=== PATIENT | male | born 1990 | race Caucasian/White ===

== ENCOUNTER 2020-05-02 18:26 | Emergency (ER) | payer SELFPAY ==
[2020-05-02 18:31] VITALS: BP 132/77
== END 2020-05-02 19:30 | disposition left against medical advice (07) ==
LOC: ED 18:26
DX: Z53.21 Procedure and treatment not carried out due to patient leaving prior to being seen by health care provider (principal)

== ENCOUNTER 2020-05-06 17:35 | Inpatient (IN) | payer SELFPAY ==
[2020-05-06] MEDS ORDERED: HYDROmorphone 1 MG/ML CARPUJECT IVP STA ×2 (17:49→18:22)
[2020-05-06] MEDS ORDERED: CLINDAMYCIN 900 MG/50 ML 50 ML IV ONE (17:50)
[2020-05-06] MEDS ORDERED: SODIUM CHLORIDE 0.9% 1,000 ML IV STA (17:50)
[2020-05-06] MEDS ORDERED: IOVERSOL 320 100 ML VIAL IVP ONE ×2 (17:56→18:47)
[2020-05-06 18:00] LABS: BASOPHILS # (AUTO) 0.1 10^3/uL (0.0-0.1); BASOPHILS % (AUTO) 0.4 %; EOSINOPHILS # (AUTO) 0.1 10^3/uL (0.0-0.7); HGB - HEMOGLOBIN 12.9 g/dL (14.0-18.0); LYMPHOCYTES # (AUTO) 1.3 10^3/uL (1.5-3.5); LYMPHOCYTES % (AUTO) 9.9 %; MEAN CORPUSCULAR HEMOGLOBIN 30.1 pg (27.0-31.0); MEAN CORPUSCULAR HGB CONC 33.3 g/dL (32.0-36.0); MEAN CORPUSCULAR VOLUME 90.4 fL (80.0-94.0); MEAN PLATELET VOLUME 8.7 fL (7.4-11.4); MONOCYTES # (AUTO) 0.8 10^3/uL (0.0-1.0); MONOCYTES % (AUTO) 6.1 %; NEUTROPHILS # (AUTO) 10.8 10^3/uL (1.5-6.6); NEUTROPHILS % (AUTO) 82.1 %; PLT - PLATELET COUNT 360 10^3/uL (130-450); RED BLOOD COUNT 4.28 10^6/uL (4.70-6.10); RED CELL DISTRIBUTION WIDTH 11.8 % (12.0-15.0); WHITE BLOOD COUNT 13.1 x10^3/uL (4.8-10.8)
--- NOTE | 2020-05-06 18:04 | ED Physician Documentation ---
History of Present Illness - Stated complaint Stated Complaint: L FACIAL PX/SWELLING - Chief complaint Chief Complaint: Heent - History obtained from History obtained from: Patient - History of Present Illness Timing: How many weeks ago (1) Pain level max: 8 Pain level now: 8 - Additonal information Additional information: 30-year-old male presents to the emergency department left neck and facial swelling. This is been ongoing for the past week. Was seen at the walk-in clinic and started on Bactrim. He states that the swelling has continued to increase. Nothing makes it better or worse. No dental pain. Patient states that it started as an ingrown hair on his neck and is slowly worsened. He states that there was green drainage earlier today. Review of Systems Ten Systems: 10 systems reviewed and negative Constitutional: denies: Fever, Chills GI: denies: Nausea, Vomiting, Diarrhea PD PAST MEDICAL HISTORY - Past Medical History Past Medical History: No - Past Surgical History Past Surgical History: No - Present Medications Home Medications: Ambulatory Orders Medication Instructions Recorded Confirmed HYDROcod/ACETAM 5/325 [[place] 5/325] 1 - 2 ea PO Q6H PRN #10 tablet 02/23/16 - Allergies Allergies/Adverse Reactions: Allergies Allergy/AdvReac Type Severity Reaction Status Date / Time amoxicillin Allergy Rash Verified 05/06/20 17:38 - Social History Does the pt smoke?: Yes Smoking Status: Current every day smoker Does the pt drink ETOH?: Yes Does the pt have substance abuse?: Yes - Immunizations Immunizations are current?: No PD ED PE NORMAL - Vitals Vital signs reviewed: Yes - General General: Alert and oriented X 3, No acute distress - HEENT HEENT: Ears normal, Moist mucous membranes, Pharynx benign, Other (Large swelling to the left side of the neck, indurated, fluctuant.) - Neck Neck: Supple, no meningeal sign - Cardiac Cardiac: RRR - Respiratory Respiratory: No respiratory distress, Clear bilaterally - Derm Derm: Warm and dry - Neuro Neuro: Alert and oriented X 3 Results - Vitals Vitals: Vital Signs - 24 hr 05/06/20 05/06/20 17:38 17:42 Temperature 37.7 C H Heart Rate 92 81 Respiratory 22 18 Rate Blood Pressure 147/83 H 192/98 H O2 Saturation 100 100 Oxygen O2 Source Room air - Labs Labs: Laboratory Tests 05/06/20 05/06/20 17:50 17:50 WBC 13.1 H RBC 4.28 L Hgb 12.9 L Hct 38.7 L MCV 90.4 MCH 30.1 MCHC 33.3 RDW 11.8 L Plt Count 360 MPV 8.7 Neut # (Auto) 10.8 H Lymph # (Auto) 1.3 L Crisp # (Auto) 0.8 Eos # (Auto) 0.1 Baso # (Auto) 0.1 Absolute Nucleated RBC 0.00 Nucleated RBC % 0.0 Sodium 140 Potassium 4.0 Chloride 100 L Carbon Dioxide 26 Anion Gap 14.0 H BUN 12 Creatinine 0.9 Estimated GFR (MDRD) 100 Glucose 129 H Calcium 8.6 Total Bilirubin 0.6 AST 20 ALT 33 Alkaline Phosphatase 78 Total Protein 6.9 Albumin 3.9 Globulin 3.0 Albumin/Globulin Ratio 1.3 Lipase 23 - Rads (name of study) CT soft tissue neck Radiology: Prelim report reviewed, EMP read contemporaneously, See rad report PD MEDICAL DECISION MAKING - ED course Complexity details: reviewed results, re-evaluated patient, considered differential, d/w patient ED course: 30-year-old male with a large left-sided neck abscess. Given clindamycin. Given Dilaudid and Toradol for pain. Discussed the case with Dr. Mukund Jon, [facility] [place] who came and evaluated the patient. We will admit the patient for IV antibiotics and likely surgical drainage. This document was made in part using voice recognition software. While efforts are made to proofread this document, sound alike and grammatical errors may occur. 1. Extensive facial and neck subcutaneous soft tissue edema with areas of focal fluid collection likely client service representative of abscesses as above. Given focal prominence at the level of the skin surface and location of several smaller fluid collections, presence of a fistulous tract cannot be excluded. There is associated reactive adenopathy. Departure - Departure Disposition: [facility] DC/Xfer Clinical Impression: Submandibular abscess Condition: Stable Discharge Date/Time: 05/06/20 19:40
[2020-05-06 18:12] LABS: ALBUMIN 3.9 g/dL (3.2-5.5); ALBUMIN/GLOBULIN RATIO 1.3 (1.0-2.2); BILIRUBIN,TOTAL 0.6 mg/dL (0.2-1.0); CALCIUM 8.6 mg/dL (8.5-10.3); CREATININE 0.9 mg/dL (0.6-1.2); TOTAL PROTEIN 6.9 g/dL (6.7-8.2)
[2020-05-06] MEDS ORDERED: KETOROLAC 30 MG/ML VIAL IVP STA (18:59)
[2020-05-06] MEDS ORDERED: VANCOMYCIN INJ 1 GM in SODIUM CHLORIDE 0.9% 500 ML IV STA (18:59)
--- NOTE | 2020-05-06 19:03 | CT Report ---
PROCEDURE: SOFT TISSUE NECK W INDICATIONS: L neck swelling, drainage CONTRAST: IV CONTRAST: Optiray 320 ml: 100 PO CONTRAST: *NO PO CONTRAST TECHNIQUE: After the administration of intravenous contrast, 3.0 mm axial sections acquired from the sella to th e aortic arch. Additional oblique axial 3.0 mm sections acquired through the pharynx. 3 mm thick co jelani reformats were generated. For radiation dose reduction, the following was used: automated exp osure control, adjustment of mA and/or kV according to patient size. COMPARISON: None. FINDINGS: Image quality: Excellent. Lymph nodes: Prominent level 1B left lymph nodes are present the largest measuring 13 mm in short axi s. Level 1A lymph node is enlarged measuring 11 mm. 12 mm left level 2A lymph nodes are present. Vessels: Visualized vasculature appears patent. Neck spaces: The oropharynx, nasopharynx, and pharynx demonstrate no mucosal lesions. The vocal cor ds, false vocal cords, pyriform sinuses, epiglottis, vallecula, and tongue base all appear normal. E xtramucosal spaces appear unremarkable. Glands: The parotid and submandibular glands appear normal. The thyroid is normal in size. Miscellaneous: Visualized brain and orbits appear normal. Lung apices appear clear. Superficial so ft tissues demonstrate significant subcutaneous stranding and edema within the mid and lower left fac ial soft tissues most prominent adjacent to and inferior to the mandible. There is a focal enhancing fluid collection identified within the soft tissues in the lower neck below the mandible along the an terior margin of the left sternocleidomastoid measuring approximately 12 mm. This is located inferior to the hyoid bone. There are several adjacent smaller fluid collections identified lateral and super ior to this collection with several appearing to connect to the skin surface. There is a focal promin ence at the level of the skin surface in the lower neck at approximately the level of the hyoid bone possibly related to a fistulous tract. Bones: No suspicious bony lesions. Visualized sinuses and mastoids appear unremarkable. IMPRESSION: 1. Extensive facial and neck subcutaneous soft tissue edema with areas of focal fluid collection like ly outside sales representative insurance of abscesses as above. Given focal prominence at the level of the skin surface and location of several smaller fluid collections, presence of a fistulous tract cannot be excluded. Ther e is associated reactive adenopathy. Reviewed by: Verona Gage MD on 05/06/2020 7:01 PM PDT Approved by: Verona Gage MD on 05/06/2020 7:01 PM PDT Station ID: [id number]
--- NOTE | 2020-05-06 19:31 | CONSULTATION NOTE ---
Referring Provider Name of Referring Provider:: Matias Decker Consult Date: 05/06/20 Chief Complaint - Chief Complaint Chief Complaint: Neck Pain History of Present Illness - Admitted From Admitted From:: ER - History Obtained From Records Reviewed: Yes History obtained from: Patient - History of Present Illness HPI Comment/Other: Nancy is a 30 yo M with a left neck abscess of skin origin. One week ago he noticed a sore on the left angle of the mandible. Later that day he was sanding a wall and he felt as if the dust from the wall contaminated his sore. He then began to have a rapid increase in swelling and pain of the left neck and attempted to drain the wound, achieving a small amount of drainage. He continued to worsen, and on 05/02 he presented to the ER for evaluation. Frustrated with the long wait time, he left before being evaluated by the ER physician and went to a walk in clinic. In the clinic there was no procedure performed. He was given an Rx for Bactrim, BID. He has now taken a total of three doses of the antibiotic, and has continued to worsen, albeit gradually. Today the pain became unbearable and he presented to the ER for evaluation. A CT demonstrated a complex abscess of the L neck and OMFS was consulted for evaluation and management of the abscess. Nancy endorses mild dysphagia, mild fever which he did not measure, severe pain of the left neck, and mild trismus caused by tightness of the overlying skin. He denies chest pain, tachycardia, fainting, shortness of breath, history of skin abscesses, known exposure to MRSA positive individuals. History - Past Medical History Respiratory: reports: None Neuro: reports: None Endocrine/Autoimmune: reports: None GI: reports: None HEENT: reports: None Psych: reports: None Musculoskeletal: reports: None MRSA Hx?: No - Substance History Use: Uses substance without health or social issues: Cannabis Meds/Allgy - Home Medications Home Medications: Ambulatory Orders Medication Instructions Recorded Confirmed HYDROcod/ACETAM 5/325 [[place] 5/325] 1 - 2 ea PO Q6H PRN #10 tablet 02/23/16 - Allergies Allergies/Adverse Reactions: Allergies Allergy/AdvReac Type Severity Reaction Status Date / Time amoxicillin Allergy Rash Verified 05/06/20 17:38 Review of Systems - Constitutional Constitutional: reports: Other (A 14 point ROS was completed and found to be negative except as noted above in HPI) Exam - Vital Signs Reviewed Vital Signs: Yes Vital Signs: Vital Signs x48h Temp Pulse Resp BP Pulse Ox 05/06/20 17:42 81 18 192/98 H 100 05/06/20 17:38 37.7 C H 92 22 147/83 H 100 - Physical Exam General Appearance: positive: Mild distress Eyes Bilateral: positive: PERRL, EOMI ENT: positive: Other (CHELSY around 40mm. Limited with neck swelling. Occlusion stable and repeatable. No intraoral ttp. No drainage intraorally. Uvula midline. No lateral pharyngeal swelling. No FOM elevation.) Neck: positive: Other (There is an ulcerated wound of the L angle of the mandible. There is marked swelling of the left buccal and submandibular areas, with severe erythema and ttp of the overlying skin. There is active drainage from the ulcerated wound, purulent in nature. There are no other similar lesions) Respiratory: positive: No respiratory distress, Breath sounds nml, Other (The erythema and ttp of the L neck extends to the L clavicle and begins to drape over it.) Cardiovascular: positive: Regular rate & rhythm, No murmur Peripheral Pulses: positive: 2+ Abdomen: positive: Non-tender, No distention Skin: positive: Other (As noted above, severe erythema of the L neck skin. There are no other lesions on the easily observable skin similar to that on the L angle of the mandible.) Extremities: positive: Full ROM, Nml appearance Neurologic/Psychiatric: positive: Oriented x3, CN's nml (2-12) Conclusion/Plan - Diagnosis Diagnosis: Abscess of the L neck - Plan Plan: A: 30 yo M w/ abscess of the L neck of skin origin. The abscess is complex, and plunging inferiorly, becoming deeper as it progresses. The medial aspect of the abscess cavity begins to approximate the trachea but remains distant from the carotid sheath. Associated cellulitis extends just over the clavicle. His last PO was at 2pm, a deli sandwich. P: We anticipate incision and drainage of the L neck in [place] [facility] [place] at 8 am under general anesthesia. - Vancomycin. Antibiogram shows 100% response for S aureus and MRSA <> poor response to Bactrim, although he has only taken three doses - decadron 10 mg x 3 doses - monitor margin of neck erythema closely - will pack the abscess and withdraw the packing gradually over the next 48 hrs - will culture the abscess - daily am cbc - if worsening, repeat CT soft tissue neck. Watch for inferior spread of abscess. Escalate care rapidly if the abscess begins to approximate the carotid sheath or the mediastinum. Please call with any questions [phone] Appreciate IM assistance Mukund Jon DDS - Lab Results Fish Bones: 05/06/20 17:50 05/06/20 17:50 - Diagnostic Imaging Results Diagnostic Imaging Results Comments: Complex abscess of the L neck. Superiorly it remains superficial to the platysma, but inferiorly it plunges deep to the platysma. No abscess around the carotid sheath.
--- NOTE | 2020-05-06 19:33 | HISTORY & PHYSICAL EXAMINATION ---
Chief Complaint - Chief Complaint Chief Complaint: neck pain History of Present Illness - Admitted From [facility] - History Obtained From Records Reviewed: yes History obtained from: patient - History of Present Illness HPI Comment/Other: Patient is a 30-year-old male who presented with a left neck abscess. Symptoms started about 1 week ago when he noticed a sore on the left angle of the mandible. The swelling and pain in the left side of his neck increased rapidly. He attempted to drain the wound with a small amount of drainage expressed. Due to worsening symptoms he presented to the ED on May 02 however due to a long wait time he left without being seen and went to a walk-in clinic. No procedure was done at the clinic but he was prescribed Bactrim twice daily. At the time of presentation for this admission he had completed a total of 3 doses of the antibiotic however his symptoms seem to worsen. The pain was unbearable today so he presented to the ED. CT scan showed a complex abscess of the left neck. Dr. Mukund Jon with oral maxillofacial surgery was consulted. The patient reported mild dysphagia, fever and severe pain in the left neck. He also reported some tightness in the overlying skin. He denied chest pain, dyspnea, abdominal pain, nausea, vomiting. History - Past Medical History MRSA Hx?: No Other Past Medical History: Patient denies any significant medical history - Past Surgical History Other past surgical history: Patient denies any surgical history - Family & Social History Family History Comment/Other: Patient denies any significant family history Social History Notes: He works as a general practice. He denies tobacco use. He drinks alcohol occasionally and also uses marijuana. - POLST Patient has POLST: No POLST Status: Full Code Meds/Allgy - Home Medications Home Medications: Ambulatory Orders Medication Instructions Recorded Confirmed HYDROcod/ACETAM 5/325 [[place] 5/325] 1 - 2 ea PO Q6H PRN #10 tablet 02/23/16 - Allergies Allergies/Adverse Reactions: Allergies Allergy/AdvReac Type Severity Reaction Status Date / Time amoxicillin Allergy Rash Verified 05/06/20 17:38 Review of Systems - Constitutional Constitutional: reports: Fever - Eyes Eyes: denies: Pain - Ears, Nose & Throat Ears, Nose & Throat: reports: Other (Swelling of the left jaw with severe pain.) - Cardiovascular Cariovascular: denies: Irregular heart rate, Palpitations, Chest pain, Edema, Lightheadedness, Syncope - Respiratory Respiratory: denies: Cough, Sputum production, Wheezing, SOB at rest - Gastrointestinal Gastrointestinal: denies: Abdominal pain, Abdominal distention, Constipation, Nausea, Vomiting - Genitourinary Genitourinary: denies: Dysuria - Musculoskeletal Musculoskeletal: denies: Muscle pain, Back pain - Integumentary Integumentary: denies: Rash, Pruritis, Lesions - Neurological Neurological: denies: General weakness, Headache - Psychiatric Psychiatric: denies: Depression, Anxiety - Endocrine Endocrine: denies: Polyuria, Polydypsia - Hematologic/Lymphatic Hematologic/Lymphatic: denies: Anemia, Bruising, Petechiae Prior Level of Functionality: Patient is independent of activities of daily living Exam - Vital Signs Vital Signs: Vital Signs x48h Temp Pulse Resp BP Pulse Ox 05/06/20 19:28 76 16 152/62 H 97 05/06/20 17:42 81 18 192/98 H 100 05/06/20 17:38 37.7 C H 92 22 147/83 H 100 - Physical Exam General Appearance: positive: Alert, Moderate distress, Severe distress Eyes Bilateral: positive: PERRL, EOMI ENT: positive: Other (Left jaw swelling with severe pain) Neck: positive: Trachea midline, Swelling/bruising (Left side of neck. Tender to palpation.) Respiratory: positive: Chest non-tender, No respiratory distress, Breath sounds nml. negative: Wheezes Cardiovascular: positive: Regular rate & rhythm, No murmur Abdomen: positive: Non-tender, No organomegaly, Nml bowel sounds, No distention Back: positive: Nml inspection Skin: positive: Color nml, No rash, Warm, Other (Skin over the left jaw appears tight.) Extremities: positive: Non-tender, Full ROM, Nml appearance, No pedal edema Neurologic/Psychiatric: positive: Oriented x3, Motor nml, Sensation nml, Mood/affect nml Conclusion/Plan - Problem List (1) Submandibular abscess Conclusion/Plan: Patient was seen by Dr. Mukund Jon. He is currently n.p.o. with plan incision and drainage tomorrow under genral anesthesia Patient had poor response to Bactrim. Patient was started on vancomycin IV. MRSA nasal screen is also pending Dexamethasone 10 mg IV every 6 hours has been ordered for a total of 3 doses. Ketorolac, oxycodone and/or morphine for pain. Patient is a young 30-year-old male with no medical history and on no medications currently. Patient is currently optimized for surgery. - Lab Results Fish Bones: 05/06/20 17:50 05/06/20 17:50 Core Measures - Anticipated LOS I expect patient to be DC'd or transferred within 96 hours.: Yes - DVT/VTE - Prophylaxis VTE/DVT Device ordered at admit?: Yes
[2020-05-06] MEDS: MORPHINE 2 MG/ML CARPUJECT IVP PRN ×2 (19:51→21:54)
[2020-05-06] MEDS: ACETAMINOPHEN 325 MG TABLET PO PRN (20:21)
[2020-05-06] MEDS: oxyCODONE 5 MG TABLET PO PRN (20:21)
[2020-05-06] MEDS: DEXAMETHASONE 10 MG/ML VIAL IVP SCH (20:22)
[2020-05-06] MEDS: SODIUM CHLORIDE FLUSH 0.9% 10 ML SYRINGE IVP PRN (20:22)
[2020-05-06] MEDS: SODIUM CHLORIDE 0.9% 1,000 ML IV SCH (21:54)
--- NOTE | 2020-05-06 22:16 | XRAY Report ---
PROCEDURE: Chest 1 View X-Ray INDICATIONS: pre-op eval TECHNIQUE: One view of the chest was acquired. COMPARISON: Chest x-ray 11/16/2015 FINDINGS: Surgical changes and devices: None. Lungs and pleura: No pleural effusions or pneumothorax. Lungs are clear. Mediastinum: Mediastinal contours appear normal. Heart size is normal. Bones and chest wall: No suspicious bony lesions. Overlying soft tissues appear unremarkable. IMPRESSION: No acute pulmonary process. Reviewed by: Verona Gage MD on 05/06/2020 10:15 PM PDT Approved by: Verona Gage MD on 05/06/2020 10:15 PM PDT Station ID: [id number]
[2020-05-07] MEDS: MORPHINE 2 MG/ML CARPUJECT IVP PRN ×5 (00:06→10:25)
[2020-05-07] MEDS: KETOROLAC 30 MG/ML VIAL IVP PRN ×3 (00:20→13:42)
[2020-05-07] MEDS: SODIUM CHLORIDE FLUSH 0.9% 10 ML SYRINGE IVP SCH ×3 (01:24→17:33)
[2020-05-07] MEDS: DEXAMETHASONE 10 MG/ML VIAL IVP SCH ×2 (02:08→07:34)
[2020-05-07 05:14] LABS: BASOPHILS % (AUTO) 0.2 %; HGB - HEMOGLOBIN 11.9 g/dL (14.0-18.0); LYMPHOCYTES # (AUTO) 0.4 10^3/uL (1.5-3.5); LYMPHOCYTES % (AUTO) 4.1 %; MEAN CORPUSCULAR HEMOGLOBIN 30.1 pg (27.0-31.0); MEAN CORPUSCULAR HGB CONC 33.1 g/dL (32.0-36.0); MEAN CORPUSCULAR VOLUME 90.9 fL (80.0-94.0); MEAN PLATELET VOLUME 8.8 fL (7.4-11.4); MONOCYTES # (AUTO) 0.1 10^3/uL (0.0-1.0); MONOCYTES % (AUTO) 0.7 %; NEUTROPHILS # (AUTO) 9.2 10^3/uL (1.5-6.6); NEUTROPHILS % (AUTO) 94.6 %; PLT - PLATELET COUNT 315 10^3/uL (130-450); RED BLOOD COUNT 3.95 10^6/uL (4.70-6.10); RED CELL DISTRIBUTION WIDTH 11.6 % (12.0-15.0); WHITE BLOOD COUNT 9.7 x10^3/uL (4.8-10.8)
[2020-05-07 05:23] LABS: CALCIUM 8.7 mg/dL (8.5-10.3); CREATININE 0.7 mg/dL (0.6-1.2)
[2020-05-07] MEDS ORDERED: WATER FOR INJECTION,STERILE 20 ML ONE (05:46)
[2020-05-07] MEDS ORDERED: VANCOMYCIN INJ 1.5 GM in SODIUM CHLORIDE 0.9% 500 ML IV SCH (06:30)
[2020-05-07] MEDS ORDERED: LACTATED RINGERS 1,000 ML IV ONE ×2 (07:22→09:40)
[2020-05-07] MEDS ORDERED: BUPIVACAINE 0.5% PF 30 ML VIAL ONE (07:34)
--- NOTE | 2020-05-07 08:58 | PHARMACY PROGRESS NOTE ---
- Best Possible Medication History Admit Date and Time: 05/06/201907 Processed by: Pharmacy Medication History completed: Yes Patient Interview: Completed Secondary Source(s): Pharmacy records, Insurance records As the person ultimately responsible for medication therapy, providers are able to order a medication from an existing home medication list in [facility] via the "Reconcile Routine" prior to Confirmation of that medication by clinical support tech. Such practice is discouraged except when the physician, in their clinical judgment, deems that a medical need exists for a medication without regard to previous use.
--- NOTE | 2020-05-07 09:03 | ANESTHESIA ---
Pre-Anesthesia VS, & Labs - Diagnosis Diagnosis Abscess of the L neck - Procedure left irrigation and drainage of submandibular abscess, drain placement Vital Signs: Temp Pulse Resp BP Pulse Ox 37.0 C 74 16 139/80 H 93 05/06/20 23:59 05/06/20 23:59 05/06/20 23:59 05/06/20 23:59 05/06/20 23:59 Height 6 ft 1 in Weight (kg) 87 kg Body Mass Index 25.2 - NPO >8 hours - Lab Results Current Lab Results: Laboratory Tests 05/07/20 04:55: Sodium 136, Potassium 4.0, Chloride 105, Carbon Dioxide 25, Anion Gap 6.0, BUN 13, Creatinine 0.7, Estimated GFR (MDRD) 134, Glucose 193 H, Calcium 8.7 05/07/20 04:55: WBC 9.7, RBC 3.95 L, Hgb 11.9 L, Hct 35.9 L, MCV 90.9, MCH 30.1, MCHC 33.1, RDW 11.6 L, Plt Count 315, MPV 8.8, Neut # (Auto) 9.2 H, Lymph # (Auto) 0.4 L, [place] # (Auto) 0.1, Eos # (Auto) 0.0, Baso # (Auto) 0.0, Absolute Nucleated RBC 0.00, Nucleated RBC % 0.0 05/06/20 17:50: Sodium 140, Potassium 4.0, Chloride 100 L, Carbon Dioxide 26, Anion Gap 14.0 H, BUN 12, Creatinine 0.9, Estimated GFR (MDRD) 100, Glucose 129 H, Calcium 8.6, Total Bilirubin 0.6, AST 20, ALT 33, Alkaline Phosphatase 78, Total Protein 6.9, Albumin 3.9, Globulin 3.0, Albumin/Globulin Ratio 1.3, Lipase 23 05/06/20 17:50: WBC 13.1 H, RBC 4.28 L, Hgb 12.9 L, Hct 38.7 L, MCV 90.4, MCH 30.1, MCHC 33.3, RDW 11.8 L, Plt Count 360, MPV 8.7, Neut # (Auto) 10.8 H, Lymph # (Auto) 1.3 L, [place] # (Auto) 0.8, Eos # (Auto) 0.1, Baso # (Auto) 0.1, Absolute Nucleated RBC 0.00, Nucleated RBC % 0.0 Fish Bones: 05/07/20 04:55 05/07/20 04:55 Home Medications and Allergies Home Medications: Ambulatory Orders No Known Home Medications 05/07/20 Active Medications Acetaminophen (Tylenol) 650 mg PO Q4HR PRN PRN Reason: Pain 1 to 4 Last Admin: 05/06/20 20:21 Dose: 650 mg Documented by: Sodium Chloride (Normal Saline 0.9%) 1,000 mls @ 100 mls/hr IV .Q10H [facility] Last Infusion: 05/07/20 06:10 Dose: 0 mls/hr Documented by: Vancomycin HCl 1.5 gm/ Sodium (Chloride) 500 mls @ 250 mls/hr IV Q12H [facility] Last Infusion: 05/07/20 08:18 Dose: Infused Documented by: Ketorolac Tromethamine (Toradol Inj (30mg)) 30 mg IVP Q6HR PRN PRN Reason: PAIN Stop: 05/11/20 19:10 Last Admin: 05/07/20 06:05 Dose: 30 mg Documented by: Morphine Sulfate (Morphine (Carpuject)) 2 mg IVP Q2HR PRN PRN Reason: Pain 8 to 10 Last Admin: 05/07/20 07:40 Dose: 2 mg Documented by: Oxycodone HCl (Roxicodone) 5 mg PO Q4HR PRN PRN Reason: Pain 5 to 7 Last Admin: 05/06/20 20:21 Dose: 5 mg Documented by: Sodium Chloride (Normal Saline Flush 0.9%) 10 ml IVP PRN PRN PRN Reason: NEEDED PER PROVIDER ORDERS Last Admin: 05/06/20 20:22 Dose: 10 ml Documented by: Sodium Chloride (Normal Saline Flush 0.9%) 10 ml IVP 0100,0900,1700 [facility] Last Admin: 05/07/20 07:35 Dose: 10 ml Documented by: Vancomycin HCl (Vancomycin-Pharmacy To Dose) 1 each MC ONCE PRN PRN Reason: PER PHARMACY No Known Home Medications 05/07/20 Allergies/Adverse Reactions: Allergies Allergy/AdvReac Type Severity Reaction Status Date / Time amoxicillin Allergy Rash Verified 05/06/20 17:38 Anes History & Medical History - Anesthetic History Anesthesia Complications: reports: No previous complications Family history of Malignant Hyperthermia: Denies - Medical History Cardiovascular: reports: None Pulmonary: reports: None Gastrointestinal: reports: None Neuro: reports: None Musculoskeletal: reports: None Endocrine/Autoimmune: reports: None Smoking Status: Current every day smoker Other Past Medical History: Patient denies any significant medical history - Surgical History Other Past Surgical History: Patient denies any surgical history Exam General: Alert Dental: WNL Mouth Opening: Greater than 4 Fingerbreadths Neck Mobility: Normal Mallampati classification: I Thyromental Distance: greater than 6 cm (edema to left neck, hard, no tracheal deviation.) Respiratory: Lungs clear Cardiovascular: Regular rate Plan Anesthesia Type: General Consent for Procedure(s) Verified and Reviewed: No Code Status: Attempt Resuscitation ASA classification: 2-Mild systemic disease Is this case an emergency?: Yes (surgeon had yet to get surgical consent, anesthesia consent signed)
[2020-05-07] MEDS ORDERED: BUPIVACAINE 0.5% PF 30 ML VIAL INFIL ONE ×2 (09:06)
--- NOTE | 2020-05-07 09:06 | PHARMACY PROGRESS NOTE ---
- Therapy Status Vancomycin regimen day #: 1 Therapy status: Awaiting steady state Basis for treatment: Empirical Trough goal: >15 - LIZZIE Risk Risk level for Acute Kidney Injury: Low Acute Kidney Injury risk factors: Goal trough >15 - Monitoring and Recommendation Clinical response to treatment: I&O Previous 24 hours 05/05/20 05/06/20 05/07/20 23:59 23:59 23:59 Intake Total 1782 1326.667 Balance 1782 1326.667 Lab Results 05/07/20 05/06/20 04:55 17:50 BUN 13 12 Creatinine 0.7 0.9 Estimated GFR (MDRD) 134 100 Monitoring plan: Daily serum creatinine
[2020-05-07] MEDS ORDERED: SUGAMMADEX 200 MG/2 ML VIAL IVP ONE (09:16)
[2020-05-07] MEDS: HYDROmorphone 1 MG/ML CARPUJECT ONE ×2 (09:38→09:45)
--- NOTE | 2020-05-07 09:45 | PROVIDER PROGRESS NOTE ---
Subjective - Prog Note Date Prog Note Date: 05/07/20 Prog Note Time: 09:43 - Subjective Pt reports feeling: Improved (No events over night. He reports feeling much better today.) Objective - Vital Signs/Intake & Output Reviewed Vital Signs: Yes Vital Signs: Vital Signs x48h Temp Pulse Pulse Resp BP BP Pulse Ox 05/07/20 09:35 36.0 C L 86 16 140/96 H 100 05/07/20 09:30 36.0 C L 93 18 138/90 H 98 05/07/20 09:25 36.2 C L 80 17 128/89 H 99 05/07/20 08:00 36.5 C 69 18 129/13 L 98 Intake & Output: Intake & Output 05/04/20 05/05/20 05/06/20 05/07/20 23:59 23:59 23:59 23:59 Intake Total 1782 1326.667 Balance 1782 1326.667 - Objective General Appearance: positive: No acute distress, Alert Eyes Bilateral: positive: PERRL, EOMI ENT: positive: Other (Marked decrease in swelling. The cellulitis of the left neck no longer extends to the clavicle. No active drainage.) - Lab Results Fish Bones: 05/07/20 04:55 05/07/20 04:55 Other Labs: Lab Results x24hrs 05/07/20 05/07/20 05/06/20 Range/Units 04:55 04:55 20:30 WBC 9.7 (4.8-10.8) x10^3/uL RBC 3.95 L (4.70-6.10) 10^6/uL Hgb 11.9 L (14.0-18.0) g/dL Hct 35.9 L (42.0-52.0) % MCV 90.9 (80.0-94.0) fL MCH 30.1 (27.0-31.0) pg MCHC 33.1 (32.0-36.0) g/dL RDW 11.6 L (12.0-15.0) % Plt Count 315 (130-450) 10^3/uL MPV 8.8 (7.4-11.4) fL Neut # (Auto) 9.2 H (1.5-6.6) 10^3/uL Lymph # (Auto) 0.4 L (1.5-3.5) 10^3/uL [place] # (Auto) 0.1 (0.0-1.0) 10^3/uL Eos # (Auto) 0.0 (0.0-0.7) 10^3/uL Baso # (Auto) 0.0 (0.0-0.1) 10^3/uL Absolute Nucleated RBC 0.00 x10^3/uL Nucleated RBC % 0.0 /100WBC Sodium 136 (135-145) mmol/L Potassium 4.0 (3.5-5.0) mmol/L Chloride 105 (101-111) mmol/L Carbon Dioxide 25 (21-32) mmol/L Anion Gap 6.0 (6-13) BUN 13 (6-20) mg/dL Creatinine 0.7 (0.6-1.2) mg/dL Estimated GFR (MDRD) 134 (>89) Glucose 193 H (70-100) mg/dL Calcium 8.7 (8.5-10.3) mg/dL Total Bilirubin (0.2-1.0) mg/dL AST (10-42) IU/L ALT (10-60) IU/L Alkaline Phosphatase (42-121) IU/L Total Protein (6.7-8.2) g/dL Albumin (3.2-5.5) g/dL Globulin (2.1-4.2) g/dL Albumin/Globulin Ratio (1.0-2.2) Lipase (22-51) U/L Nasal Screen MRSA (PCR) NEGATIVE (NEGATIVE) 05/06/20 05/06/20 Range/Units 17:50 17:50 WBC 13.1 H (4.8-10.8) x10^3/uL RBC 4.28 L (4.70-6.10) 10^6/uL Hgb 12.9 L (14.0-18.0) g/dL Hct 38.7 L (42.0-52.0) % MCV 90.4 (80.0-94.0) fL MCH 30.1 (27.0-31.0) pg MCHC 33.3 (32.0-36.0) g/dL RDW 11.8 L (12.0-15.0) % Plt Count 360 (130-450) 10^3/uL MPV 8.7 (7.4-11.4) fL Neut # (Auto) 10.8 H (1.5-6.6) 10^3/uL Lymph # (Auto) 1.3 L (1.5-3.5) 10^3/uL [place] # (Auto) 0.8 (0.0-1.0) 10^3/uL Eos # (Auto) 0.1 (0.0-0.7) 10^3/uL Baso # (Auto) 0.1 (0.0-0.1) 10^3/uL Absolute Nucleated RBC 0.00 x10^3/uL Nucleated RBC % 0.0 /100WBC Sodium 140 (135-145) mmol/L Potassium 4.0 (3.5-5.0) mmol/L Chloride 100 L (101-111) mmol/L Carbon Dioxide 26 (21-32) mmol/L Anion Gap 14.0 H (6-13) BUN 12 (6-20) mg/dL Creatinine 0.9 (0.6-1.2) mg/dL Estimated GFR (MDRD) 100 (>89) Glucose 129 H (70-100) mg/dL Calcium 8.6 (8.5-10.3) mg/dL Total Bilirubin 0.6 (0.2-1.0) mg/dL AST 20 (10-42) IU/L ALT 33 (10-60) IU/L Alkaline Phosphatase 78 (42-121) IU/L Total Protein 6.9 (6.7-8.2) g/dL Albumin 3.9 (3.2-5.5) g/dL Globulin 3.0 (2.1-4.2) g/dL Albumin/Globulin Ratio 1.3 (1.0-2.2) Lipase 23 (22-51) U/L Nasal Screen MRSA (PCR) (NEGATIVE) Assessment/Plan - Problem List (1) Submandibular abscess Impression: Markedly improved clinical exam this am. WBC downtrending afebrile overnight Plan: - Performed I&D of the L neck in the OR this am. Good drainage. Submitted cultures for sensitivity. - did not pack the wound, instead placed a perforated 1/4 inch [place] in the L neck so that the wound can be irrigated. - continue Vancomycin - monitor for mediastinitis or necrotizing fasciitis. If condition deteriorates, repeat CT soft tissue neck. - will rinse the drain out tomorrow am - Please have the patient shower today. Replace the dressing afterwards. DO NOT tape the dressing to the neck Appreciate IM assistance. Please call with any questions. Mukund [place] [phone]
[2020-05-07] MEDS: HYDROmorphone 0.5 MG/0.5 ML SYRINGE ONE ×2 (09:51→10:03)
[2020-05-07] MEDS ORDERED: HYDROmorphone 0.5 MG/0.5 ML SYRINGE ONE (10:06)
[2020-05-07] MEDS: SODIUM CHLORIDE 0.9% 1,000 ML IV SCH (10:25)
[2020-05-07] MEDS: oxyCODONE 5 MG TABLET PO PRN ×2 (11:02→16:12)
[2020-05-07] MEDS ORDERED: HYDROmorphone 2 MG/ML VIAL IVP PRN (11:05)
--- NOTE | 2020-05-07 14:37 | PROVIDER PROGRESS NOTE ---
Subjective - Prog Note Date Prog Note Date: 05/07/20 Prog Note Time: 14:34 - Subjective Subjective: He had an I&D with a drain put in in the OR this morning. His main problem postoperatively been pain. We needed to change his morphine to Dilaudid since melissa mays was not cutting it. He has been afebrile. Oxygenating well on room air. Current Medications - Current Medications Current Medications: Active Medications Acetaminophen (Tylenol) 650 mg PO Q4HR PRN PRN Reason: Pain 1 to 4 Last Admin: 05/06/20 20:21 Dose: 650 mg Documented by: Hydromorphone HCl (Dilaudid (Vial)) 1 mg IVP Q2H PRN PRN Reason: PAIN Last Admin: 05/07/20 12:38 Dose: 1 mg Documented by: Sodium Chloride (Normal Saline 0.9%) 1,000 mls @ 100 mls/hr IV .Q10H [facility] Last Admin: 05/07/20 10:25 Dose: 100 mls/hr Documented by: Vancomycin HCl 1 gm/Vancomycin HCl 500 mg/ Sodium Chloride 500 mls @ 250 mls/hr IV Q12H [facility] Ketorolac Tromethamine (Toradol Inj (30mg)) 30 mg IVP Q6HR PRN PRN Reason: PAIN Stop: 05/11/20 19:10 Last Admin: 05/07/20 13:42 Dose: 30 mg Documented by: Oxycodone HCl (Roxicodone) 5 mg PO Q4HR PRN PRN Reason: Pain 5 to 7 Last Admin: 05/07/20 11:02 Dose: 5 mg Documented by: Sodium Chloride (Normal Saline Flush 0.9%) 10 ml IVP PRN PRN PRN Reason: NEEDED PER PROVIDER ORDERS Last Admin: 05/06/20 20:22 Dose: 10 ml Documented by: Sodium Chloride (Normal Saline Flush 0.9%) 10 ml IVP 0100,0900,1700 [facility] Last Admin: 05/07/20 07:35 Dose: 10 ml Documented by: No Known Home Medications 05/07/20 Objective - Vital Signs/Intake & Output Reviewed Vital Signs: Yes Vital Signs: Vital Signs x48h Temp Pulse Pulse Pulse Resp BP BP 05/07/20 12:46 36.8 C 70 70 18 135/77 H 05/07/20 11:46 93 18 147/78 H 05/07/20 10:48 70 129/81 H 05/07/20 10:16 75 16 134/79 H 05/07/20 10:13 36.3 C L 78 16 130/85 H 05/07/20 10:05 36.3 C L 78 16 135/72 H 05/07/20 09:50 36.3 C L 75 17 132/86 H 05/07/20 09:40 36.3 C L 80 16 130/86 H 05/07/20 09:35 36.0 C L 86 16 140/96 H 05/07/20 09:30 36.0 C L 93 18 138/90 H 05/07/20 09:25 36.2 C L 80 17 128/89 H 05/07/20 08:00 36.5 C 69 18 129/13 L Pulse Ox 05/07/20 12:46 98 05/07/20 11:46 98 05/07/20 10:48 05/07/20 10:16 05/07/20 10:13 100 05/07/20 10:05 98 05/07/20 09:50 97 05/07/20 09:40 97 05/07/20 09:35 100 05/07/20 09:30 98 05/07/20 09:25 99 05/07/20 08:00 98 Intake & Output: Intake & Output 05/04/20 05/05/20 05/06/20 05/07/20 23:59 23:59 23:59 23:59 Intake Total 1782 2306.667 Balance 1782 2306.667 - Objective General Appearance: positive: Alert, Moderate distress Eyes Bilateral: positive: PERRL ENT: positive: Other (Left neck drain in place. Upper and lower poles of it. Soft tissue swelling is much improved from yesterday but it did extend to the upper clavicle yesterday.) Respiratory: positive: No respiratory distress. negative: Wheezes, Rales, Rhonchi Cardiovascular: positive: Regular rate & rhythm. negative: Systolic murmur, Gallop/S4 Abdomen: positive: Non-tender, No organomegaly, Nml bowel sounds, No distention Skin: positive: Warm, Dry Extremities: positive: Non-tender, Full ROM, No pedal edema Neurologic/Psychiatric: positive: Oriented x3, CN's nml (2-12), Motor nml - Lab Results Fish Bones: 05/07/20 04:55 05/07/20 04:55 Other Labs: Lab Results x24hrs 05/07/20 05/07/20 05/06/20 Range/Units 04:55 04:55 20:30 WBC 9.7 (4.8-10.8) x10^3/uL RBC 3.95 L (4.70-6.10) 10^6/uL Hgb 11.9 L (14.0-18.0) g/dL Hct 35.9 L (42.0-52.0) % MCV 90.9 (80.0-94.0) fL MCH 30.1 (27.0-31.0) pg MCHC 33.1 (32.0-36.0) g/dL RDW 11.6 L (12.0-15.0) % Plt Count 315 (130-450) 10^3/uL MPV 8.8 (7.4-11.4) fL Neut # (Auto) 9.2 H (1.5-6.6) 10^3/uL Lymph # (Auto) 0.4 L (1.5-3.5) 10^3/uL [place] # (Auto) 0.1 (0.0-1.0) 10^3/uL Eos # (Auto) 0.0 (0.0-0.7) 10^3/uL Baso # (Auto) 0.0 (0.0-0.1) 10^3/uL Absolute Nucleated RBC 0.00 x10^3/uL Nucleated RBC % 0.0 /100WBC Sodium 136 (135-145) mmol/L Potassium 4.0 (3.5-5.0) mmol/L Chloride 105 (101-111) mmol/L Carbon Dioxide 25 (21-32) mmol/L Anion Gap 6.0 (6-13) BUN 13 (6-20) mg/dL Creatinine 0.7 (0.6-1.2) mg/dL Estimated GFR (MDRD) 134 (>89) Glucose 193 H (70-100) mg/dL Calcium 8.7 (8.5-10.3) mg/dL Total Bilirubin (0.2-1.0) mg/dL AST (10-42) IU/L ALT (10-60) IU/L Alkaline Phosphatase (42-121) IU/L Total Protein (6.7-8.2) g/dL Albumin (3.2-5.5) g/dL Globulin (2.1-4.2) g/dL Albumin/Globulin Ratio (1.0-2.2) Lipase (22-51) U/L Nasal Screen MRSA (PCR) NEGATIVE (NEGATIVE) 05/06/20 05/06/20 Range/Units 17:50 17:50 WBC 13.1 H (4.8-10.8) x10^3/uL RBC 4.28 L (4.70-6.10) 10^6/uL Hgb 12.9 L (14.0-18.0) g/dL Hct 38.7 L (42.0-52.0) % MCV 90.4 (80.0-94.0) fL MCH 30.1 (27.0-31.0) pg MCHC 33.3 (32.0-36.0) g/dL RDW 11.8 L (12.0-15.0) % Plt Count 360 (130-450) 10^3/uL MPV 8.7 (7.4-11.4) fL Neut # (Auto) 10.8 H (1.5-6.6) 10^3/uL Lymph # (Auto) 1.3 L (1.5-3.5) 10^3/uL [place] # (Auto) 0.8 (0.0-1.0) 10^3/uL Eos # (Auto) 0.1 (0.0-0.7) 10^3/uL Baso # (Auto) 0.1 (0.0-0.1) 10^3/uL Absolute Nucleated RBC 0.00 x10^3/uL Nucleated RBC % 0.0 /100WBC Sodium 140 (135-145) mmol/L Potassium 4.0 (3.5-5.0) mmol/L Chloride 100 L (101-111) mmol/L Carbon Dioxide 26 (21-32) mmol/L Anion Gap 14.0 H (6-13) BUN 12 (6-20) mg/dL Creatinine 0.9 (0.6-1.2) mg/dL Estimated GFR (MDRD) 100 (>89) Glucose 129 H (70-100) mg/dL Calcium 8.6 (8.5-10.3) mg/dL Total Bilirubin 0.6 (0.2-1.0) mg/dL AST 20 (10-42) IU/L ALT 33 (10-60) IU/L Alkaline Phosphatase 78 (42-121) IU/L Total Protein 6.9 (6.7-8.2) g/dL Albumin 3.9 (3.2-5.5) g/dL Globulin 3.0 (2.1-4.2) g/dL Albumin/Globulin Ratio 1.3 (1.0-2.2) Lipase 23 (22-51) U/L Nasal Screen MRSA (PCR) (NEGATIVE) ABX Reporting Has patient been on IV antibiotics over the past 48 hours?: No Assessment/Plan - Problem List (1) Submandibular abscess Impression: Postop day 0 for an incision and debridement Day #2 of antibiotics Vancomycin chosen since he is MRSA positive White cell count is gone from 13.1->9.7 Oral maxillofacial surgery is a senior safety management consultant service but they will decide when this patient can go home.
--- NOTE | 2020-05-07 15:17 | OPERATIVE REPORT ---
DATE OF SERVICE: 05/07/2020 Physician: Mukund Jon DDS PROCEDURE PERFORMED: Incision and drainage of the left neck. PREOPERATIVE DIAGNOSIS: Abscess of skin origin of the left neck. POSTOPERATIVE DIAGNOSIS: Abscess of skin origin of the left neck. PRIMARY SURGEON: Mukund Jon DDS COLOR DIPPER: Rose Mary. ANESTHESIA TYPE: General anesthesia via oral endotracheal intubation. INSTRUCTOR BUS TROLLEY AND TAXI: Dawn Das. SPECIMENS: Sample of the purulence was obtained and submitted for aerobic and anaerobic culture and sensitivity. DRAINS, PACKS, CATHETERS: A 1/4 inch [place] was placed in the left neck from the superior incision to the inferior incision. COMPLICATIONS: None. ESTIMATED BLOOD LOSS: 25 mL. INDICATIONS FOR PROCEDURE: The patient is a 30-year-old male with a week long of swelling of the left neck. He came into the emergency room, and clinical and radiographic examination was consistent with an abscess of the left neck of integumentary origin, plunging through the platysma and down beginning to approach the larynx and the trachea. It was decided that incision and drainage of this abscess was indicated. The risks, benefits and alternatives of this plan were discussed with the patient, including pain, swelling, bleeding, scarring, need for further surgery, recurrence of the infection, spreading of the infection to the mediastinum, paralysis of the nerves of the face. Adequate time was given to answer all questions, and informed consent was obtained. DESCRIPTION OF PROCEDURE The patient was brought to the main operating room and placed in a supine position on the operating table. General anesthesia was induced by the anesthesia team, and the airway was secured with an oral endotracheal tube taped off to the right corner of the mouth. All pressure points were padded and checked. The patient's arms were tucked. The eyes were protected with tape. The patient was prepped and draped in the standard sterile fashion for an incision and drainage of the neck. Local anesthesia was achieved with 3 mL of 0.5% Marcaine with 1:200,000 epinephrine. Attention was directed to the left neck. An incision was first made at the inferior extent of the raised area of swelling. It was noted, now that the patient was under anesthesia and his exam could be more thorough, that the skin was extremely indurated. The incision was made through skin and down to platysma. A curved [place] was then used to dissect superiorly. The dissection was very easy and did not meet with a large amount of resistance. Bleeding was controlled with electrocautery. The lack of resistance from the dissection was a little concerning for necrotizing fasciitis, but the skin had good capillary refill and had bleeding margins. The appearance of the tissue was not consistent with necrotizing fasciitis. A significant amount of purulence was encountered, and a cotton swab was introduced into the wound, and a large amount of purulence was obtained and submitted for microbiologic evaluation. The wound was milked, and then attention was directed to the superior aspect of the swelling, right over the wound where the skin infection had apparently begun. A horizontal incision was made through skin only, and then blunt dissection was performed with a curved [place]. The 2 wounds were made to connect. The entire abscess cavity was explored. A significant amount of purulence was found in this cavity as well. The site was irrigated copiously by introducing a red rubber catheter into the wound and using a bulb syringe irrigation to flush the wound out with half a liter of sterile saline. Once irrigation was complete, the patient's face was cleansed. A 1/4-inch [place] was perforated with some scissors and then placed into the wound and sewn into place with a single nylon suture at the inferior incision. The suture was not placed at the superior incision because the skin was so delicate and breaking down at this location, because of the patient's infection, that it would not likely hold suture. After this, the patient's face was cleansed thoroughly, and he was dressed with a fluff and a tubular stockinette. Care of the patient was then returned to the anesthesia team for uneventful emergence from anesthesia and extubation. The patient was transferred to the PACU in stable condition. TD: 05/07/2020 10:06 VINCENT
[2020-05-07] MEDS: HYDROmorphone 2 MG/ML VIAL IVP PRN ×4 (15:32→22:16)
[2020-05-07] MEDS: ACETAMINOPHEN 325 MG TABLET PO PRN (16:12)
[2020-05-07] MEDS: VANCOMYCIN INJ 1 GM, VANCOMYCIN INJ 500 MG in SODIUM CHLORIDE 0.9% 500 ML IV SCH (18:37)
[2020-05-08] MEDS: KETOROLAC 30 MG/ML VIAL IVP PRN ×3 (00:19→17:40)
[2020-05-08] MEDS: HYDROmorphone 2 MG/ML VIAL IVP PRN ×9 (00:25→17:43)
[2020-05-08] MEDS: SODIUM CHLORIDE FLUSH 0.9% 10 ML SYRINGE IVP PRN ×6 (00:30→06:25)
[2020-05-08] MEDS: SODIUM CHLORIDE FLUSH 0.9% 10 ML SYRINGE IVP SCH ×3 (00:31→15:47)
[2020-05-08] MEDS: ACETAMINOPHEN 325 MG TABLET PO PRN (01:23)
[2020-05-08] MEDS: oxyCODONE 5 MG TABLET PO PRN ×3 (01:24→19:03)
[2020-05-08 05:33] LABS: BASOPHILS % (AUTO) 0.3 %; EOSINOPHILS % (AUTO) 0.1 %; HGB - HEMOGLOBIN 11.4 g/dL (14.0-18.0); LYMPHOCYTES # (AUTO) 1.6 10^3/uL (1.5-3.5); LYMPHOCYTES % (AUTO) 10.5 %; MEAN CORPUSCULAR HEMOGLOBIN 30.1 pg (27.0-31.0); MEAN CORPUSCULAR HGB CONC 33.3 g/dL (32.0-36.0); MEAN CORPUSCULAR VOLUME 90.2 fL (80.0-94.0); MEAN PLATELET VOLUME 8.9 fL (7.4-11.4); MONOCYTES # (AUTO) 0.9 10^3/uL (0.0-1.0); NEUTROPHILS # (AUTO) 12.9 10^3/uL (1.5-6.6); NEUTROPHILS % (AUTO) 82.1 %; PLT - PLATELET COUNT 357 10^3/uL (130-450); RED BLOOD COUNT 3.79 10^6/uL (4.70-6.10); RED CELL DISTRIBUTION WIDTH 11.9 % (12.0-15.0); WHITE BLOOD COUNT 15.7 x10^3/uL (4.8-10.8)
[2020-05-08 05:38] LABS: CREATININE 0.7 mg/dL (0.6-1.2)
[2020-05-08] MEDS: VANCOMYCIN INJ 1 GM, VANCOMYCIN INJ 500 MG in SODIUM CHLORIDE 0.9% 500 ML IV SCH (06:32)
--- NOTE | 2020-05-08 11:56 | PROVIDER PROGRESS NOTE ---
Subjective - Prog Note Date Prog Note Date: 05/08/20 Prog Note Time: 11:55 - Subjective Pt reports feeling: No change Subjective: Drain has been removed. In spite of changing pain medicines from morphine to Dilaudid. And increasing the Dilaudid dose from 1 mg to 2 mg yesterday, pain is still an 8 out of a 10. No fever. White cell is rising. Culture from the wound is growing out MSSA Current Medications - Current Medications Current Medications: Active Medications Acetaminophen (Tylenol) 650 mg PO Q4HR PRN PRN Reason: Pain 1 to 4 Last Admin: 05/08/20 01:23 Dose: 650 mg Documented by: Hydromorphone HCl (Dilaudid (Vial)) 2 mg IVP Q2H PRN PRN Reason: PAIN Last Admin: 05/08/20 11:37 Dose: 2 mg Documented by: Ketorolac Tromethamine (Toradol Inj (30mg)) 30 mg IVP Q6HR PRN PRN Reason: PAIN Stop: 05/11/20 19:10 Last Admin: 05/08/20 06:28 Dose: 30 mg Documented by: Oxycodone HCl (Roxicodone) 5 mg PO Q4HR PRN PRN Reason: Pain 5 to 7 Last Admin: 05/08/20 01:24 Dose: 5 mg Documented by: Sodium Chloride (Normal Saline Flush 0.9%) 10 ml IVP PRN PRN PRN Reason: NEEDED PER PROVIDER ORDERS Last Admin: 05/08/20 06:25 Dose: 10 ml Documented by: Sodium Chloride (Normal Saline Flush 0.9%) 10 ml IVP 0100,0900,1700 NICO[facility] Last Admin: 05/08/20 08:35 Dose: 10 ml Documented by: No Known Home Medications 05/07/20 Objective - Vital Signs/Intake & Output Reviewed Vital Signs: Yes Vital Signs: Vital Signs x48h Temp Pulse Resp BP Pulse Ox 05/08/20 09:13 36.9 C 66 18 134/79 H 99 Intake & Output: Intake & Output 05/05/20 05/06/20 05/07/20 05/08/20 23:59 23:59 23:59 23:59 Intake Total 1782 3806.667 1220 Balance 1782 3806.667 1220 - Objective General Appearance: positive: No acute distress, Moderate distress, Other (Calm, without tachycardia, agitation. Pain an 8 out of a 10 on his left neck and face. Able to eat.) ENT: positive: Pharynx nml Neck: positive: Other (Facial swelling on that left side of jaw, along the jawline, down into the neck above the clavicle continues. But there is no redness. No heat. No drainage.) Respiratory: positive: Chest non-tender, No respiratory distress. negative: Wheezes, Rales, Rhonchi Cardiovascular: positive: Regular rate & rhythm. negative: Systolic murmur, Gallop/S4, Friction rub Abdomen: positive: Non-tender, No organomegaly, Nml bowel sounds Skin: positive: Warm, Dry Extremities: positive: Full ROM, No pedal edema Neurologic/Psychiatric: positive: Oriented x3, CN's nml (2-12), Motor nml - Lab Results Fish Bones: 05/08/20 05:02 05/08/20 05:02 Other Labs: Lab Results x24hrs 05/08/20 05/08/20 Range/Units 05:02 05:02 WBC 15.7 H (4.8-10.8) x10^3/uL RBC 3.79 L (4.70-6.10) 10^6/uL Hgb 11.4 L (14.0-18.0) g/dL Hct 34.2 L (42.0-52.0) % MCV 90.2 (80.0-94.0) fL MCH 30.1 (27.0-31.0) pg MCHC 33.3 (32.0-36.0) g/dL RDW 11.9 L (12.0-15.0) % Plt Count 357 (130-450) 10^3/uL MPV 8.9 (7.4-11.4) fL Neut # (Auto) 12.9 H (1.5-6.6) 10^3/uL Lymph # (Auto) 1.6 (1.5-3.5) 10^3/uL [place] # (Auto) 0.9 (0.0-1.0) 10^3/uL Eos # (Auto) 0.0 (0.0-0.7) 10^3/uL Baso # (Auto) 0.0 (0.0-0.1) 10^3/uL Absolute Nucleated RBC 0.00 x10^3/uL Nucleated RBC % 0.0 /100WBC Creatinine 0.7 (0.6-1.2) mg/dL Estimated GFR (MDRD) 134 (>89) ABX Reporting Has patient been on IV antibiotics over the past 48 hours?: Yes Assessment/Plan - Problem List (1) Submandibular abscess Impression: Postop day 1 for an incision and debridement Day #3 of antibiotics after failing outpatient bactrim Vancomycin chosen since he has a hx of being MRSA positive White cell count is gone from 13.1->9.7->15.7 Oral maxillofacial surgery is a economic consultant service but they will decide when this patient can go home. Plan: Discussion with pharmacy. They recommend stopping vancomycin since ER was MRSA PCR negative on this visit. He is allergic to amoxicillin. Recommendations would usually be nafcillin, oxalcillin or Ancef. He was changed to clindamycin. However will change to Ancef. Discussed with pharmacy. (2) Acute post-operative pain Impression: At this time, he is on Toradol, oxycodone orally if needed, and Dilaudid 2 mg every 2 hours as needed. No change at this time.
[2020-05-08] MEDS ORDERED: ceFAZolin 2 GM in SODIUM CHLORIDE 0.9% 100ML 100 ML IV SCH ×4 (14:00)
[2020-05-08] MEDS ORDERED: CLINDAMYCIN IV 600 MG/50 ML IV SCH (14:00)
--- NOTE | 2020-05-08 18:01 | PROVIDER PROGRESS NOTE ---
Subjective - Prog Note Date Prog Note Date: 05/08/20 Prog Note Time: 07:30 - Subjective Pt reports feeling: Improved (Feeling better today, but still reporting significant pain. No difficulty breathing or swallowing. Marked decrease in reported airway swelling Afebrile overnight. Minimal drainage from L neck drain.) Objective - Vital Signs/Intake & Output Vital Signs: Vital Signs x48h Temp Pulse Resp BP Pulse Ox 05/08/20 16:00 36.9 C 66 18 122/70 99 Intake & Output: Intake & Output 05/05/20 05/06/20 05/07/20 05/08/20 23:59 23:59 23:59 23:59 Intake Total 1782 3806.667 1840 Balance 1782 3806.667 1840 - Objective General Appearance: positive: No acute distress Eyes Bilateral: positive: PERRL, EOMI ENT: positive: Other (CHELSY wnl FOM s, nt,ne) Neck: positive: Other ( Decreased less cervical swelling, induration, and erythema. The erythema no longer extends to the clavicle.) - Lab Results Fish Bones: 05/08/20 05:02 05/08/20 05:02 Other Labs: Lab Results x24hrs 05/08/20 05/08/20 Range/Units 05:02 05:02 WBC 15.7 H (4.8-10.8) x10^3/uL RBC 3.79 L (4.70-6.10) 10^6/uL Hgb 11.4 L (14.0-18.0) g/dL Hct 34.2 L (42.0-52.0) % MCV 90.2 (80.0-94.0) fL MCH 30.1 (27.0-31.0) pg MCHC 33.3 (32.0-36.0) g/dL RDW 11.9 L (12.0-15.0) % Plt Count 357 (130-450) 10^3/uL MPV 8.9 (7.4-11.4) fL Neut # (Auto) 12.9 H (1.5-6.6) 10^3/uL Lymph # (Auto) 1.6 (1.5-3.5) 10^3/uL [place] # (Auto) 0.9 (0.0-1.0) 10^3/uL Eos # (Auto) 0.0 (0.0-0.7) 10^3/uL Baso # (Auto) 0.0 (0.0-0.1) 10^3/uL Absolute Nucleated RBC 0.00 x10^3/uL Nucleated RBC % 0.0 /100WBC Creatinine 0.7 (0.6-1.2) mg/dL Estimated GFR (MDRD) 134 (>89) Assessment/Plan - Problem List (1) Submandibular abscess Impression: 30 YOM POD #1 s/p I&D of the L neck. Improving - WBC up to 15 today - remains afebrile during this hospitalization - MSSA cultures. P: OK for d/c to home from OMFS standpoint - f/u tomorrow in my office Appreciate IM assistance. Please call with any questions. Mukund Jon DDS [phone]
--- NOTE | 2020-05-08 18:09 | Discharge Plan ---
Discharge Plan Problem Reviewed?: Yes Disposition: Home, Self Care Condition: Stable Prescriptions: HYDROmorphone [Dilaudid] 2 mg PO Q4H #30 tablet Cephalexin [Keflex] 500 mg PO QID #24 capsule Diet: Regular Activity Restrictions: Activity as Tolerated Shower Restrictions: No Driving Restrictions: No Instruction Topics: Dexamethasone injection, Staph Infec Non MRSA, Dental Abscess Health Concerns: You presented to our emergency room after failing treatment of a facial abscess with Bactrim. Your relatives had to really convince you to come on in because you really did not like how you were treated by the emergency room staff. And you had already left the emergency room once without being treated. By the time he got here the facial abscess was quite severe. And you had an elevated white cell count. Plan of Treatment: 1. You went to the operating room and Dr. Mukund Jon did an incision and debridement with a drainage tube into the neck. 2. You received IV antibiotics with vancomycin with us thinking that this was MRSA or staph that was resistant to usual antibiotics. Once the cultures came back and the culture showed a "regular Staph" we changed you to Ancef. 3. In spite of that, your white cell count is still a little elevated and we are concerned about continued infection. Nevertheless you really want to go home and the surgeon feels you are safe to do so as long as you continue to take antibiotics. 4. Please take Keflex, 500 mg, 4 times a day. Take them until the bottle is empty. 5. Pain is severe and you will be sent home with Dilaudid 2 mg tablets. 1 tablet every 4 hours as needed. #30. The surgeon will be glad to see you every day and if need be, prescribe you more pain medicine. 6. Please see the surgeon, daily, in his office. His address is [address] [place] [address], in [place]. His phone number is [phone]. Care Goals: To have this infection go away. Assessment: Patient understands plan and promises to follow through No Smoking: If you smoke, Please STOP! Call for help.
--- NOTE | 2020-05-08 18:17 | DISCHARGE SUMMARY ---
"Discharge Summary Admit Date: 05/06/20 Discharge Date: 05/08/20 Discharging Provider: Melanie Terrazas MD Primary Care Provider: Mukund Jon Code Status: Attempt Resuscitation Condition at Discharge: Stable Discharge Disposition: 01 Home, Self Care - DIAGNOSES Discharge Diagnoses with Status of Each Condition: 1. Submandibular abscess 2. Acute postoperative pain - HPI History of Present Illness: Patient is a 30-year-old male who presented with a left neck abscess. Symptoms started about 1 week ago when he noticed a sore on the left angle of the mandible. The swelling and pain in the left side of his neck increased rapidly. He attempted to drain the wound with a small amount of drainage expressed. Due to worsening symptoms he presented to the ED on May 02 however due to a long wait time he left without being seen and went to a walk-in clinic. No procedure was done at the clinic but he was prescribed Bactrim twice daily. At the time of presentation for this admission he had completed a total of 3 doses of the antibiotic however his symptoms seem to worsen. The pain was unbearable today so he presented to the ED. CT scan showed a complex abscess of the left neck. Dr. Mukund Jon with oral maxillofacial surgery was consulted. The patient reported mild dysphagia, fever and severe pain in the left neck. He also reported some tightness in the overlying skin. He denied chest pain, dyspnea, abdominal pain, nausea, vomiting. - Past Medical History MRSA Hx?: No Other Past Medical History: Patient denies any significant medical history - Past Surgical History Other past surgical history: Patient denies any surgical history - CONSULTS | PROCEDURES Consultations: Mukund Jon DDS Procedures: Incision and debridement of submandibular abscess - HOSPITAL COURSE Hospital Course: Patient was placed on IV antibiotics. White cell count was initially elevated. No fever. The following morning his white cell count was normal. Had an incision and debridement in the operating room. Postoperatively he had significant pain that was not relieved by oral opiates. Toradol, oxycodone and morphine were used. Morphine was changed to Dilaudid 1 mg. An increase to Dilaudid 2 mg. Pain was significant along the left face and incision site. On the third day of admission the patient was really anxious to go home. He had no fever. Was tolerating p.o. food and ambulating in his room. He still had an elevated white cell count. Nevertheless, surgeon felt that he was safe to go home. He will be seeing the patient daily in his office for follow-up. Cultures came back and it was MSSA. Up until that time he was on vancomycin for possible MRSA. He was switched to Ancef. He does have an allergy to amoxicillin but tolerated the Ancef well. We were hoping to avoid clindamycin for its side effects. He was discharged in stable condition. Temperature 36.9. Pulse 66. Blood pressure 122/70. Respirations 18. 99% on room air. He is 6 feet 1 inches tall and weighs 87 kg. He is a young white male, left side of his submandibular area is still swollen from the abscess but half the size it was on admission. There is no redness, slight warmth. No drainage. He has anterior cervical adenopathy palpable on the left side. And a tender supraclavicular area but no fluctuance, redness, heat. Lungs are clear to auscultation and percussion. PMI is normally placed with a regular rate and rhythm. The abdomen is benign. He is ambulating in his room without any assistance. Greater than 30 minutes was spent coordinating discharge. Speaking to Dr. Jon and the patient. - ALLERGIES Allergies/Adverse Reactions: Allergies Allergy/AdvReac Type Severity Reaction Status Date / Time amoxicillin Allergy Rash Verified 05/06/20 17:38 - MEDICATIONS Home Medications: Ambulatory Orders Medication Instructions Recorded Confirmed Cephalexin [Keflex] 500 mg PO QID #24 capsule 05/08/20 HYDROmorphone [Dilaudid] 2 mg PO Q4H #30 tablet 05/08/20 - LABS Result Diagrams: 05/08/20 05:02 05/08/20 05:02"
[2020-05-08 19:04] VITALS: BP 143/66
[2020-05-08] MEDS ORDERED: HYDROmorphone 1 MG/ML CARPUJECT IVP ONE (19:14)
[2020-05-08] MEDS ORDERED: fentaNYL 100 MCG/2 ML VIAL IVP ONE (19:14)
[2020-05-08] MEDS ORDERED: ROCURONIUM 50 MG/5 ML VIAL IVP ONE (19:14)
[2020-05-08] MEDS ORDERED: ONDANSETRON 4 MG/2 ML VIAL IVP ONE (19:14)
[2020-05-08] MEDS ORDERED: LIDOCAINE-MPF 2% 5 ML VIAL IM ONE (19:14)
[2020-05-08] MEDS ORDERED: ACETAMINOPHEN 1,000 MG/100 ML 100 ML IV ONE (19:14)
[2020-05-08] MEDS ORDERED: KETAMINE 500 MG/10 ML VIAL IVP ONE (19:14)
[2020-05-08] MEDS ORDERED: MIDAZOLAM 2 MG/2 ML VIAL IVP ONE (19:14)
[2020-05-08] MEDS ORDERED: PROPOFOL 200 MG/20 ML VIAL IVP ONE (19:14)
== END 2020-05-08 19:15 | disposition home or self-care (01) | DRG 158 ==
LOC: ED 17:35 → MS2 19:08
PROVIDERS: ADMIT Specialist; ATTEND Specialist
PROC: 0J9500Z Drainage of Left Neck Subcutaneous Tissue and Fascia with Drainage Device, Open Approach (ICD-10-PCS; principal; 2020-05-07 07:18)
DX: K12.2 Cellulitis and abscess of mouth (principal); L03.221 Cellulitis of neck; B95.61 Methicillin susceptible Staphylococcus aureus infection as the cause of diseases classified elsewhere; G89.18 Other acute postprocedural pain; Z72.89 Other problems related to lifestyle; Z86.14 Personal history of Methicillin resistant Staphylococcus aureus infection; Z88.1 Allergy status to other antibiotic agents
CPT/HCPCS: 36415; 70491; 71045; 80048; 80053; 82565; 83690; 85025; 87070; 87181; 87205; 87640; 93005; 96365; 96366; 96368; 96375; 99284; 99285; A9270; J1170; J3370; J7120; Q9967; 80202

== ENCOUNTER 2020-08-03 12:50 | Outpatient (CLI) | payer SELFPAY | END 2020-08-03 12:51 | disposition home or self-care (01) | LOC: COV 12:50 | PROVIDERS: ATTEND Family Medicine | DX: M79.10 Myalgia, unspecified site (principal); R68.83 Chills (without fever); R19.7 Diarrhea, unspecified; R11.2 Nausea with vomiting, unspecified; Z20.828 Contact with and (suspected) exposure to other viral communicable diseases ==

== ENCOUNTER 2023-09-13 16:22 | Emergency (ER) | payer OTHER ==
[2023-09-13] MEDS ORDERED: BUPRENORPHINE/NALOXONE 8-2 MG TAB SL STA ×2 (16:43→18:06)
--- NOTE | 2023-09-13 16:53 | ED Physician Documentation ---
History of Present Illness - Stated complaint Stated Complaint: MHE - Chief complaint Chief Complaint: General - History obtained from History obtained from: Patient - History of Present Illness Pain level max: 4 Pain level now: 4 - Additonal information Additional information: Patient is a 33-year-old male who uses fentanyl about 1 g/day. He states that he smokes that usually. He has not used for 2 days. He is complaining of withdrawal symptoms currently. Has had nausea, vomiting, diarrhea, shaking. No fevers. No chills. No cough. No congestion. Patient states he does occasionally use marijuana, denies any alcohol use. Denies any other drug use. No seizures. He does live at his own residence. Review of Systems Constitutional: denies: Fever, Chills Respiratory: denies: Dyspnea, Cough GI: denies: Vomiting, Diarrhea Skin: denies: Rash Musculoskeletal: denies: Neck pain, Back pain Neurologic: denies: Headache PD PAST MEDICAL HISTORY - Past Medical History Cardiovascular: None Respiratory: None Neuro: None Endocrine/Autoimmune: None GI: None HEENT: None Psych: None Musculoskeletal: None - Past Surgical History Past Surgical History: No - Present Medications Home Medications: Ambulatory Orders Medication Instructions Recorded Confirmed HYDROmorphone [Dilaudid] 2 mg PO Q4H #30 tablet 05/08/20 cephALEXin [Keflex] 500 mg PO QID #24 capsule 05/08/20 - Allergies Allergies/Adverse Reactions: Allergies Allergy/AdvReac Type Severity Reaction Status Date / Time amoxicillin Allergy Rash Verified 05/06/20 17:38 - Social History Does the pt smoke?: Yes Smoking Status: Current every day smoker Does the pt drink ETOH?: Yes Does the pt have substance abuse?: Yes - Immunizations Immunizations are current?: No - POLST Patient has POLST: No POLST Status: Full Code PD ED PE NORMAL - Vitals Vital signs reviewed: Yes - General General: Alert and oriented X 3, Other (sweaty, anxious) - HEENT HEENT: PERRL, Moist mucous membranes - Neck Neck: Supple, no meningeal sign - Cardiac Cardiac: RRR, Strong equal pulses - Respiratory Respiratory: No respiratory distress, Clear bilaterally - Abdomen Abdomen: Soft, Non tender, Non distended - Derm Derm: Warm and dry - Extremities Extremities: Other (tremulous) - Neuro Neuro: Alert and oriented X 3, reed man 2-12 intact, No motor deficit, No sensory deficit, Normal speech - Psych Psych: Normal mood, Normal affect Results - Vitals Vitals: Vital Signs - 24 hr 09/13/23 09/13/23 16:36 20:55 Temperature 37 C 35.9 C L Heart Rate 92 65 Respiratory 20 18 Rate Blood Pressure 135/98 H 134/82 H O2 Saturation 98 96 Oxygen O2 Source Room air - Labs Labs: Laboratory Tests 09/13/23 09/13/23 09/13/23 20:47 20:47 20:51 WBC 13.9 H RBC 5.41 Hgb 15.6 Hct 44.8 MCV 82.8 MCH 28.8 MCHC 34.8 RDW 11.6 L Plt Count 377 MPV 8.3 Neut # (Auto) 12.2 H Lymph # (Auto) 1.0 L [place] # (Auto) 0.6 Eos # (Auto) 0.0 Baso # (Auto) 0.0 Absolute Nucleated RBC 0.00 Nucleated RBC % 0.0 Sodium 139 Potassium 3.4 L Chloride 107 Carbon Dioxide 22 Anion Gap 10.0 BUN 13 Creatinine 0.8 Estimated GFR (MDRD) 113 Glucose 113 H Calcium 9.5 Total Bilirubin 0.7 AST 11 ALT 28 Alkaline Phosphatase 69 Total Protein 6.9 Albumin 4.7 Globulin 2.2 Albumin/Globulin Ratio 2.1 Lipase < 10 L Urine Color DARK YELLOW Urine Clarity CLEAR Urine pH 7.5 Ur Specific [place] 1.015 Urine Protein TRACE Urine Glucose (UA) NEGATIVE Urine Ketones 15 H Urine Occult Blood NEGATIVE Urine Nitrite NEGATIVE Urine Bilirubin NEGATIVE Urine Urobilinogen 1 (NORMAL) Ur Leukocyte Esterase NEGATIVE Ur Microscopic Review NOT INDICATED Urine Culture Comments NOT INDICATED Urine Opiates Screen NEGATIVE Ur Oxycodone Screen NEGATIVE Urine Methadone Screen NEGATIVE Ur Propoxyphene Screen NEGATIVE Ur Barbiturates Screen NEGATIVE Ur Tricyclics Screen NEGATIVE Ur Phencyclidine Scrn NEGATIVE Ur Amphetamine Screen NEGATIVE U Methamphetamines Scrn NEGATIVE U Benzodiazepines Scrn POSITIVE H Urine Cocaine Screen NEGATIVE U Cannabinoids Screen POSITIVE H Ethyl Alcohol < 10.0 PD Medical Decision Making - ED course Complexity details: reviewed results, re-evaluated patient, considered differential, d/w patient ED course: 33-year-old male with fentanyl withdrawal. COWS score is 24. Given Suboxone 8 mg. His symptoms mildly improved, another 8 mg were given. He was also given 2 mg of Ativan. Symptoms improved greatly. He would like to go to detox, we will evaluate for a bed. Patient will be signed out to the oncoming emergency department physician for continued care of the final withdrawal and hopeful placement at detox. [facility] does not have any beds tonight, but may in the morning. [facility] is also looking at the patient to see if he would benefit from being there. This document was made in part using voice recognition software. While efforts are made to proofread this document, sound alike and grammatical errors may occur. Departure - Departure Clinical Impression: Narcotic withdrawal Condition: Stable Forms: PCP List
[2023-09-13] MEDS ORDERED: LORazepam 1 MG TABLET PO STA (18:06)
[2023-09-13] MEDS ORDERED: LORazepam 2 MG/ML VIAL IM STA (19:42)
[2023-09-13 21:00] LABS: BASOPHILS % (AUTO) 0.3 %; EOSINOPHILS % (AUTO) 0.1 %; HCT - HEMATOCRIT 44.8 % (42.0-52.0); HGB - HEMOGLOBIN 15.6 g/dL (14.0-18.0); LYMPHOCYTES % (AUTO) 7.4 %; MEAN CORPUSCULAR HEMOGLOBIN 28.8 pg (27.0-31.0); MEAN CORPUSCULAR HGB CONC 34.8 g/dL (32.0-36.0); MEAN CORPUSCULAR VOLUME 82.8 fL (80.0-94.0); MEAN PLATELET VOLUME 8.3 fL (7.4-11.4); MONOCYTES # (AUTO) 0.6 10^3/uL (0.0-1.0); MONOCYTES % (AUTO) 4.1 %; NEUTROPHILS # (AUTO) 12.2 10^3/uL (1.5-6.6); NEUTROPHILS % (AUTO) 87.7 %; PLT - PLATELET COUNT 377 10^3/uL (130-450); RED BLOOD COUNT 5.41 10^6/uL (4.70-6.10); RED CELL DISTRIBUTION WIDTH 11.6 % (12.0-15.0); WHITE BLOOD COUNT 13.9 x10^3/uL (4.8-10.8)
[2023-09-13 21:02] LABS: MUDS CUTOFF CONCENTRATIONS CUTOFF CONC BELOW:
[2023-09-13 21:04] LABS: GLUCOSE, URINE (UA) NEGATIVE (NEGATIVE); KETONES,URINE (UA) 15 mg/dL (NEGATIVE); LEUKOCYTE ESTERASE, URINE NEGATIVE (NEGATIVE); NITRITE,URINE NEGATIVE (NEGATIVE); OCCULT BLOOD,URINE NEGATIVE (NEGATIVE); PH,URINE 7.5 PH (5.0-7.5); PROTEIN,URINE TRACE mg/dL (NEGATIVE); UROBILINOGEN,URINE 1 (NORMAL) E.U./dL (NORMAL)
[2023-09-13 21:07] LABS: BILIRUBIN,URINE NEGATIVE (NEGATIVE); ICTOTEST,URINE NEGATIVE
[2023-09-13 21:08] LABS: CLARITY,URINE CLEAR (CLEAR)
[2023-09-13 21:13] LABS: AMPHETAMINE SCREEN,URINE NEGATIVE (NEGATIVE); BENZODIAZEPINES SCREEN, URINE POSITIVE (NEGATIVE); COCAINE SCREEN URINE NEGATIVE (NEGATIVE); METHAMPHETAMINES SCREEN, URINE NEGATIVE (NEGATIVE); OPIATE SCREEN, URINE NEGATIVE (NEGATIVE); THC CANNABINOID SCREEN, URINE POSITIVE (NEGATIVE)
[2023-09-13 21:14] LABS: BARBITURATE SCREEN,UR NEGATIVE (NEGATIVE); METHADONE SCREEN, URINE NEGATIVE (NEGATIVE); OXYCODONE SCREEN, URINE NEGATIVE (NEGATIVE); PROPOXYPHENE SCREEN, URINE NEGATIVE (NEGATIVE); TRICYCLIC ANTIDEPRESSANT,URINE NEGATIVE (NEGATIVE)
[2023-09-13 21:19] LABS: ALBUMIN 4.7 g/dL (3.2-5.5); ALBUMIN/GLOBULIN RATIO 2.1 (1.0-2.2); ALKALINE PHOSPHATASE 69 IU/L (42-121); ALT ALANINE AMINOTRANSFERASE 28 IU/L (10-60); AST ASPARTATE AMINOTRANSFERASE 11 IU/L (10-42); BILIRUBIN,TOTAL 0.7 mg/dL (0.2-1.0); BUN - BLOOD UREA NITROGEN 13 mg/dL (6-20); CALCIUM 9.5 mg/dL (8.5-10.3); CARBON DIOXIDE - CO2 22 mmol/L (21-32); CHLORIDE 107 mmol/L (101-111); CREATININE 0.8 mg/dL (0.6-1.3); ETOH - ETHANOL < 10.0 mg/dL; GFR - MDRD 113 (>89); GLUCOSE 113 mg/dL (74-104); POTASSIUM 3.4 mmol/L (3.5-4.5); SODIUM 139 mmol/L (135-145); TOTAL PROTEIN 6.9 g/dL (6.4-8.9)
[2023-09-13 21:20] LABS: LIPASE < 10 U/L (11-82)
[2023-09-13] MEDS ORDERED: hydrOXYzine PAMOATE 25 MG CAPSULE PO STA (22:26)
[2023-09-14] MEDS ORDERED: hydrOXYzine PAMOATE 25 MG CAPSULE PO STA (03:02)
[2023-09-14] MEDS ORDERED: BUPRENORPHINE/NALOXONE 8-2 MG TAB SL STA (03:02)
--- NOTE | 2023-09-14 06:27 | ED Physician Documentation ---
ED Addendum - Addendum Addendum: 09/14/23 06:24 The patient's case was being evaluated by [facility]. Apparently the initial report of his labs and information did not go through by fax. We will check back with them in then discovered that. Information has been recent to them and they are reviewing it now for the past couple of hours. The patient was having some anxiety and withdrawal type symptoms returning. He was given another dose of Suboxone and some hydroxyzine. This seemed to have helped him again. He is now resting. We are still awaiting [facility] to get back to us about confirmation. They do have a bed available and just need to review the case. We will continue treatment for his symptoms until a place is found or he is discharged. If [facility] declines him, we will then try it the detox in [place] or another facility. If thereis available there then we would have to treat him outpatient with prescription medications.
--- NOTE | 2023-09-14 10:37 | ED Physician Documentation ---
ED Addendum - Addendum Addendum: 09/14/23 10:36 Patient monitored overnight with mild agitation, improved with Suboxone. As of 10:30 AM Case is still pending at [facility], patient declining inpatient stating that he would prefer outpatient services. On my evaluation patient is awake, alert, no acute distress, not in extremis. He will be given referrals for outpatient detox resources.
[2023-09-14 11:04] VITALS: BP 104/90; O2SAT 95
== END 2023-09-14 10:57 | disposition home or self-care (01) ==
LOC: ED 16:22
DX: F11.23 Opioid dependence with withdrawal (principal); F17.200 Nicotine dependence, unspecified, uncomplicated
CPT/HCPCS: 36415; 80053; 80306; 80320; 81003; 83690; 85025; 96372; 99283; 99284; A9270; J2060; J8499; 81001; 87086